=== PATIENT | male | born 1990 | race Caucasian/White ===

== ENCOUNTER 2018-11-16 19:44 | Emergency (ER) | payer BC, OTHER ==
[~2018-11-16] VITALS: Ht 180.3 cm; Wt 81.0 kg
[~2018-11-16 19:44] MED LIST: DOCU-144 PO; OMEP20CA16 PO; POLY17PO6 PO
[2018-11-16 20:03] VITALS: Ht 180.3 cm; Wt 81.0 kg
[2018-11-16] MEDS ORDERED: BELLADONNA/PHENOBARBITAL TAB PO STA (21:35)
[2018-11-16] MEDS ORDERED: LIDOCAINE/MYLANTA 40 ML BTL PO STA (21:35)
[2018-11-16] MEDS ORDERED: ONDANSETRON 4 MG INJ IV STA (21:35)
[2018-11-16] MEDS ORDERED: KETOROLAC 15 MG INJ IV STA (21:35)
[2018-11-16] MEDS ORDERED: LACTATED RINGER'S 1,000 ML IV STA (21:35)
[2018-11-16 23:24] VITALS: BP 126/85; PULSE 59; RESP 16
== END 2018-11-16 23:25 | disposition home or self-care (01) ==
LOC: E/R 19:44
DX: K59.01 Slow transit constipation (principal)
CPT/HCPCS: 36415; 74176; 80053; 81001; 83690; 85025; 85610; 85730; 96374; 96375; J1885; J2405; J7120; Z7502; Z7610; 81003